=== PATIENT | male | born 1955 | race Caucasian/White ===

== ENCOUNTER 2017-02-06 12:42 | Outpatient (CLI) | payer BC ==
--- NOTE | 2017-02-06 14:31 | RAD ---
EXAM: LUMBAR SPINE 4 VIEWS: HISTORY: Low back pain with pain radiating down the right leg to the foot. The patient slipped 2 weeks ago and hyperextended his leg. COMPARISON: 07/30/16. FINDINGS: AP, lateral neutral, lateral extension, and lateral flexion views of the lumbar spine demonstrate 5 lumbar-type vertebral bodies. Stable fusion hardware along the posterior elements of L4, L5, and S1 . Stable anterior fusion changes at L4-L5. Stable disk prosthesis at L4-L5. One of the transpedic ular screws at L5 is fractured, similar to the prior exam. In the neutral position, 3.8 mm of retrolisthesis of L2 upon L3. Upon flexion, 3.3 mm of retrolisth esis of L2 upon L3. Upon extension, 4.1 mm of retrolisthesis of L2 upon L3. IMPRESSION: 1. Essentially unchanged and stable fusion changes of the lumbar spine. 2. Stable spondylolisthesis. POS: [facility]
== END 2017-02-06 12:43 | disposition home or self-care (01) ==
LOC: TBSIIMAG 12:42
PROVIDERS: ATTEND Neurological Surgery
DX: M54.16 Radiculopathy, lumbar region (principal); M43.26 Fusion of spine, lumbar region; M43.10 Spondylolisthesis, site unspecified
CPT/HCPCS: 72110

== ENCOUNTER 2019-11-22 06:57 | Day surgery (SDC) | payer BC ==
--- NOTE | 2019-11-22 08:55 | RAD ---
Exam: Lumbar myelogram COMPARISON: 06/21/2015, 07/30/2016 Exposure: 1 minute, 1529.8 mcg/sq m FINDINGS: [employer] lumbar spine radiograph demonstrates stable fusion changes with bilateral transpedicul ar screws at L4, L5 and S1. The right S1 screw is fractured. There is an anterior fusion at L4-L5. L4-L5 disc prosthesis is identified. Vacuum disc phenomenon at L2-L3. Moderate degenerative change at L3-L4. Successful lumbar puncture. A total of 9 cc of Isovue-M 200 contrast was administered intrathecally. There is evidence of a small amount of epidural contrast. TECHNIQUE: Consent obtained to perform a lumbar puncture. Patient's back was evaluated. The L2-L3 lev el was deemed appropriate. Sterile fashion. 1% lidocaine, buffered with sodium or, was used for local anesthesia. Under fluoroscopic guidance, 22-gauge spinal needle was advanced into the CSF space . Total of 9 cc of Isovue-M 200 contrast was administered intrathecally. Patient tolerated the procedure well. No immediate or postprocedure complications. IMPRESSION: Successful lumbar puncture for lumbar myelogram.
[2019-11-22 09:37] VITALS: BP 101/70; TEMP 97.6
--- NOTE | 2019-11-22 09:39 | CT ---
Exam: POST MYELOGRAM LUMBAR SPINE CT: COMPARISON: 07/30/2016, 06/21/2015. FINDINGS: Five lumbar type vertebra. Bilateral posterior transpedicular screws at L4, L5 and S1. The right S1 t ranspedicular screw is broken. Disc prosthesis at L4-L5. Associated anterior fusion at L4-L5. Laminectomy defect at L4-L5 and L5-S1. Progression of vacuum disc phenomenon at L2-L3. Endplate sclerosis and osteophyte formation has forme d. Lumbar spine vertebral body heights are maintained. No fracture. Spondylolisthesis: L1-L2: 2.6 mm of retrolisthesis. L3-L4: 2.6 mm of retrolisthesis. Appropriate attenuation of the visualized paraspinal muscles and solid organs. Diverticulosis, without evidence of diverticulitis. Mild enlarged prostate gland with mass effect upon the urinary bladder. Presacral fat is preserved. Sacral ala are intact. Visualized bony pelvis is also intact. Sagittal and axial images demonstrate mixed injection. T10-T11, T11-T12 and T12-L1: No high-grade central canal stenosis. Mild narrowing due to epidural co ntrast. L1-L2: No significant central canal stenosis. Neural foramina are patent. L2-L3: Vacuum disc phenomenon. Broad-based disc bulge, ligamentum flavum thickening and facet hypertr ophy. Moderate central canal stenosis. Severe bilateral neural foraminal narrowing. L3-L4: Broad-based disc bulge, ligamentum flavum thickening and facet hypertrophy. Moderate central c anal stenosis. Moderate to severe bilateral neural foraminal narrowing. L4-L5: Posterior laminectomy defect. Disc prosthesis. No evidence of high-grade central canal stenosi s. Moderate right and mild left neural foraminal narrowing. L5-S1: Fusion of the disc space. Posterior laminectomy defect. No significant central canal stenosis. Mild to moderate right and moderate left neural foraminal narrowing. IMPRESSION: 1. Stable fusion and postoperative changes. 2. Moderate central canal stenosis at L2-L3 and L3-L4. 3. Severe bilateral neural foraminal narrowing at L2-L3. 4. Progression of vacuum disc phenomenon at L2-L3 with endplate sclerosis and osteophyte formation. Transcribed Date/Time: 11/22/2019 10:01 AM
--- NOTE | 2019-11-22 09:56 | RAD ---
4 views of the cervical spine:: 11/22/2019 COMPARISON: None HISTORY: Cervical radiculopathy FINDINGS: There is anterolisthesis on neutral imaging at C4-5 measuring 4 mm. There is disc space megan rowing with degenerative endplate change and anterior osteophyte formation at C5-6 and C6-7. The flexion imaging demonstrates anterolisthesis at C3-4 measuring 3 mm and at C4-5 measuring 4 mm. O n the extension imaging there is no anterolisthesis at C3-4 and the anterolisthesis at C4-5 measures approximately 2-3 mm. No prevertebral soft tissue swelling is noted. Frontal imaging demonstrates multilevel mid cervical spine facet and uncovertebral osteophyte formati on, right greater than left. IMPRESSION: Multilevel degenerative change within the cervical spine as described above. Mild multile jordan anterolisthesis noted, most prominent upon flexion.
--- NOTE | 2019-11-22 10:04 | RAD ---
Lumbar spine 4 views: 11/22/2019 COMPARISON: 02/06/2017 HISTORY: Radiculopathy FINDINGS: Anterior fusion hardware is present at the L4-5 level and posterior fusion hardware is pres ent at L4-5/L5-S1 level. Stable fracture of one of the S1 pedicle screws again noted. The configuration of the postoperative hardware does not appear significantly changed when compared t o the 2017 exam. The patient underwent recent myelogram and there is contrast overlying the central canal at the L4 an d L5 levels. On the neutral lateral imaging there is retrolisthesis at the L2-3 level measuring 5 mm. This measure s 3 mm on flexion and 6 mm on extension. There is prominent degenerative endplate change with disc space narrowing, vacuum disc formation, as well as anterior and posterior osteophyte at the L2-3 leve l. Disc space narrowing with degenerative endplate change and posterior osteophyte formation noted at L3-4. The degree of degenerative changes better assessed on the CT myelogram of the lumbar spine also perfo rmed 11/22/2019. IMPRESSION: Postoperative and degenerative changes of the lumbar spine as detailed above.
[2019-11-22] MEDS ORDERED: Iopamidol-M 200 41% 20 ML VIAL ONE (10:07)
== END 2019-11-22 10:05 | disposition home or self-care (01) ==
LOC: RAD 06:57
PROVIDERS: ATTEND Neurological Surgery
PROC: B02B1ZZ Computerized Tomography (CT Scan) of Spinal Cord using Low Osmolar Contrast (ICD-10-PCS; principal; 2019-11-22)
DX: M47.27 Other spondylosis with radiculopathy, lumbosacral region (principal); M48.061 Spinal stenosis, lumbar region without neurogenic claudication; M54.12 Radiculopathy, cervical region; G95.89 Other specified diseases of spinal cord; I10 Essential (primary) hypertension; E11.9 Type 2 diabetes mellitus without complications; J45.909 Unspecified asthma, uncomplicated; Z79.899 Other long term (current) drug therapy
CPT/HCPCS: 62304; 72050; 72110; 72132; Q9966

== ENCOUNTER 2019-11-25 08:42 | Outpatient (CLI) | payer BC ==
--- NOTE | 2019-11-25 10:13 | MRI ---
MRI cervical spine noncontrast: 11/25/2019 HISTORY: 64-year-old male with cervical radiculopathy COMPARISON: None FINDINGS: Vertebral body heights are maintained. No major bone marrow signal abnormality. Cervical spinal cord is normal in size and signal. C1-2: No central stenosis. C2-3: Disc space maintained. Small to moderate-sized right uncinate process osteophytes cause moderat e right neural foraminal stenosis. Small left uncinate process osteophytes cause mild left neural foraminal stenosis. No central stenosis. Moderate right facet DJD. Mild left facet DJD. C3-4: Disc space maintained. Severe bilateral facet DJD, right greater than left, cause mild grade 1 anterolisthesis of C3 on C4. No central stenosis. Small bilateral uncinate process osteophytes. Severe right neural foraminal stenosis. Moderate to severe left neural foraminal stenosis. C4-5: Mild disc space narrowing. Severe bilateral facet DJD, left greater than right, causing mild gr julian 1 anterolisthesis of C4 on C5. Broad-based central and bilateral paracentral-lateral disc protrusion encroaches on the ventral aspect of spinal canal. Ligamentum flavum thickening encroaches upon posterior lateral aspect of spinal canal. Overall result is moderate central spinal canal stenosis. Moderate size bilateral uncinate process osteophytes. Severe bilateral neural foraminal mabel nosis. C5-6: Thickened posterior longitudinal ligament is contiguous with the broad-based disc protrusions a t C4-5 and C5-6. Moderate disc space narrowing. Broad-based central and bilateral paracentral-lateral disc protrusion encroaches on the ventral aspect of spinal canal, causing moderat e central spinal canal stenosis. Large bilateral uncinate process osteophytes causing severe bilateral neural foraminal stenosis, right worse than left. Normal right facet joint. Mild-moderate l eft facet DJD. C6-7: Moderate disc space narrowing. Moderate disc space narrowing. Broad-based central and bilateral paracentral-lateral disc protrusion encroaches on the ventral aspect of spinal canal, causing moderate central spinal canal stenosis. Mild bilateral facet DJD. Large bilateral uncinate process os teophytes cause severe bilateral neural foraminal stenosis. C7-T1: Severe right and moderate to severe left facet DJD causes mild grade 1 anterolisthesis of C7 o n T1. Mild disc space narrowing. No high-grade central spinal canal stenosis. Moderate bilateral neural foraminal stenosis. IMPRESSION: 1.) Cervical spondylosis with: degenerative disc disease at C4-5, C5-C6, and C6-7; and multilevel hig h-grade facet osteoarthrosis, including severe. 2) multilevel severe neural foraminal stenosis bilaterally. 3) moderate central spinal canal stenosis at several levels.
== END 2019-11-25 08:43 | disposition home or self-care (01) ==
LOC: BICMRI 08:42 → EDSTATUS 09:30
PROVIDERS: ATTEND Neurological Surgery
DX: M50.121 Cervical disc disorder at C4-C5 level with radiculopathy (principal); M47.22 Other spondylosis with radiculopathy, cervical region; M48.02 Spinal stenosis, cervical region; M48.03 Spinal stenosis, cervicothoracic region
CPT/HCPCS: 72141

== ENCOUNTER 2020-02-10 07:30 | Outpatient (CLI) | payer BC, OTHER ==
[2020-02-10 14:21] LABS: Hemoglobin 13.8 g/dL (14.0-18.0); Mean Corpuscular HGB CONC 33.5 g/dL (32.0-36.0); Mean Corpuscular Hemoglobin 30.3 pg (27.0-31.0); Mean Corpuscular Volume 90.5 fL (78.0-98.0); Mean Platelet Volume 8.1 fL (7.4-10.4); Platelet Count 194 thou/uL (130-400); RBC Distribution Width 11.9 % (11.5-14.5); Red Blood Cell (RBC) Count 4.56 mill/uL (4.70-6.10); White Blood Cell (WBC) Count 7.3 thou/uL (4.8-10.8)
[2020-02-10 14:37] LABS: INR-International Normal Ratio 0.9; PTT 28.7 sec (22.9-36.1); Prothrombin Time 12.7 sec (12.0-14.7)
[2020-02-11 11:12] LABS: SARS-CoV-2 MS2 Positive; SARS-CoV-2 N Gene Negative; SARS-CoV-2 S Gene Negative; SARS-CoV-2 by NAA Not Detected (NotDetected); SARS-CoV-2 orf1ab Negative
== END 2020-02-10 07:31 | disposition home or self-care (01) ==
LOC: LABBT 07:30
PROVIDERS: ATTEND Neurological Surgery
DX: Z01.812 Encounter for preprocedural laboratory examination (principal); Z20.828 Contact with and (suspected) exposure to other viral communicable diseases; M50.10 Cervical disc disorder with radiculopathy, unspecified cervical region; M48.02 Spinal stenosis, cervical region
CPT/HCPCS: 85027; 85610; 85730; 87635; U0003

== ENCOUNTER 2020-02-14 05:47 | Day surgery (SDC) | payer BC ==
[2020-02-10 10:37] VITALS: BMI 25.5
[2020-02-14] MEDS ORDERED: Thrombin 5000 UNITS/5 ML VIAL ONE ×2 (06:11→09:56)
[2020-02-14] MEDS ORDERED: Fentanyl 250 MCG/5 ML VIAL ONE (06:37)
[2020-02-14 06:43] LABS: Anion Gap 12 mmol/L (10-20); BUN (Urea Nitrogen) 23 mg/dL (8.4-25.7); Calc. Creatinine Clearance 67 mL/min (70-130); Calcium 8.8 mg/dL (7.8-10.44); Carbon Dioxide 27 mmol/L (23-31); Chloride 104 mmol/L (98-107); Estimated GFR-MDRD 61; Glucose 137 mg/dL (80-115); Potassium 4.1 mmol/L (3.5-5.1); Sodium 139 mmol/L (136-145)
[2020-02-14] MEDS ORDERED: EPHEDRINE 25 MG/5 ML SYRINGE ONE (10:28)
[2020-02-14] MEDS ORDERED: Ondansetron PF 4 MG/2 ML Vial ONE (10:28)
[2020-02-14] MEDS ORDERED: Albuterol Sulfate HFA (OR ONLY) ONE (10:28)
[2020-02-14] MEDS ORDERED: PHENYLEPHRINE-NS 100 MCG/ML 10 ML SYRINGE ONE (10:28)
[2020-02-14] MEDS ORDERED: Glycopyrrolate 0.2 MG/ML 5 ML SYRINGE ONE (10:28)
[2020-02-14] MEDS ORDERED: Vecuronium 10 MG VIAL ONE (10:28)
[2020-02-14] MEDS ORDERED: Rocuronium Bromide 10 MG/ML (10ML VIAL) ONE (10:28)
[2020-02-14] MEDS ORDERED: Lidocaine 1% PF 5 ML VIAL ONE (10:28)
[2020-02-14] MEDS ORDERED: Dexamethasone 20 MG/5 ML VIAL ONE (10:28)
[2020-02-14] MEDS ORDERED: Metoclopramide HCl 10 MG/2 ML VIAL ONE (10:28)
[2020-02-14] MEDS ORDERED: PROPOFOL 200 MG/20 ML VIAL ONE (10:28)
[2020-02-14] MEDS ORDERED: HYDROmorphone 2 MG/ML VIAL SLOW IVP PRN (12:55)
[2020-02-14] MEDS ORDERED: PACU-Morphine 4MG/ML VIAL SLOW IVP PRN (12:55)
[2020-02-14] MEDS ORDERED: Ondansetron HCl/PF 4 MG/2 ML Vial IVP PRN (12:55)
[2020-02-14] MEDS ORDERED: Promethazine HCl 25 MG/ML VIAL IM PRN ×2 (12:55→13:11)
[2020-02-14] MEDS ORDERED: Promethazine HCl 25 MG/ML VIAL SLOW IVP PRN (12:55)
[2020-02-14] MEDS ORDERED: Morphine Sulfate 2 MG/ML SYRINGE SLOW IVP PRN (12:55)
[2020-02-14] MEDS ORDERED: Mag-Al 1200 mg/1200 mg/30 ML UDCUP PO PRN (13:11)
[2020-02-14] MEDS ORDERED: Morphine 2 MG/ML VIAL SLOW IVP PRN (13:11)
[2020-02-14] MEDS ORDERED: Promethazine 25 MG TAB PO PRN (13:11)
[2020-02-14] MEDS ORDERED: Milk Of Magnesia 30 ML UDCUP PO PRN (13:11)
[2020-02-14] MEDS ORDERED: traMADol HCl 50 MG TAB PO PRN (13:11)
[2020-02-14] MEDS ORDERED: Scopolamine 1.5 mg/72 hour Patch TD PRN (13:11)
[2020-02-14] MEDS ORDERED: Acetaminophen 325 MG TAB PO PRN (13:11)
[2020-02-14] MEDS ORDERED: diphenhydrAMINE 50 MG/ML VIAL IVP PRN (13:11)
[2020-02-14] MEDS ORDERED: HYDROmorphone 2 MG/ML VIAL ONE (13:13)
[2020-02-14] MEDS ORDERED: Fentanyl 100 MCG/2 ML VIAL ONE (14:02)
[2020-02-14] MEDS: Sodium Chloride 0.9% 1,000 ML IV SCH (15:45)
[2020-02-14] MEDS: CEFAZOLIN 2 GM in Premix Bag 1 BAG IVPB SCH ×2 (15:45→21:41)
[2020-02-14] MEDS: tiZANidine HCl 4 MG TAB PO PRN ×2 (15:56→21:56)
--- NOTE | 2020-02-14 18:03 | EKG ---
Test Reason : PREOP Blood Pressure : / mmHG Vent. Rate : 048 BPM Atrial Rate : 048 BPM P-R Int : 212 ms QRS Dur : 088 ms QT Int : 436 ms P-R-T Axes : 025 -01 026 degrees QTc Int : 389 ms Marked sinus bradycardia with 1st degree A-V block Abnormal ECG No previous ECGs available Confirmed by DR. Logan PRABHAKAR (3) on 02/14/2020 6:02:56 PM Referred By: TARUN Confirmed By:DR. Logan PRABHAKAR
--- NOTE | 2020-02-14 19:15 | OP ---
DATE OF PROCEDURE: 02/14/2020 [facility] PRACT[facility] NURSE PSYCHOTHERAPIST: Ranjeet Perez PA-C. PREOPERATIVE INDICATIONS: Treat pain and prevent neurological deterioration. PREOPERATIVE DIAGNOSES: Multilevel cervical intervertebral disk disease with foraminal stenosis and canal stenosis, instability. POSTOPERATIVE DIAGNOSES: Multilevel cervical intervertebral disk disease with foraminal stenosis and canal stenosis, instability. PROCEDURES PERFORMED: 1. Anterior cervical diskectomy, C3-C4, C4-C5, C5-C6, C6-C7. 2. Intervertebral arthrodesis, C3-C4, C4-C5, C5-C6, C6-C7. 3. Placement of intervertebral biomechanical device,C3-C4, C4-C5, C5-C6, C6-C7 (separate from plate). 4. Anterior cervical plating, C3-C7 (separate from interbody devices). 5. Local morselized autograft, morselized allograft. 6. Operative microscope. PREOPERATIVE MEDICATIONS: Ancef 2 g IV. DRAIN NUMBER: Zero. DRAIN TYPE: None. DESCRIPTION OF PROCEDURE: The patient was brought to the operating room. General endotracheal anesthesia was induced. The patient was carefully positioned supine with his head supported by a donut-shaped headrest. A lateral fluoro radiograph was used to plan our incision. The right side of the neck was sterilely prepped and draped. We opened our incision with a 10 blade knife and we controlled bleeding with bipolar cautery. We dissected sharply to the platysma and we cut this muscle in line with our incision. We continued our dissection medial to the sternocleidomastoid and lateral to the trachea and esophagus. We arrived at the prevertebral space. We placed a marker at C3-C4 and took a lateral fluoro radiograph to confirm the levels upon which we were operating. We elevated the longus colli muscles off the anterior surface of C3, C4, C5, C6, and C7. A self-retaining retractor was placed under the longus colli muscles at C4. Distraction pins were placed at C3 and C5 and we distracted across the two intervening interspaces. We incised the interspaces with a 15 blade knife and removed disk contents using curettes and rongeurs. The operating microscope was brought into the field. Under microscopic magnification and using microsurgical techniques, we removed the remainder of the intervertebral disk. We accessed the ventral epidural space with a micro curette. Using 1 and 2 mm Kerrison rongeurs, we removed posterior longitudinal ligament and posterior osteophytes from one neural foramen all the way to the other foramen ensuring adequate decompression of all neural elements at C3-C4 and again at C4-C5. We turned our attention to arthrodesis. With curettes, we prepared the endplates. With a bone rasp, we measured the height of each interspace. Both of these interspaces measured 8 mm in height. Two separate PEEK grafts were brought into the field. These measured 8 mm in height to match the interspaces. The osteophytes removed during our decompression were cleaned of soft tissue attachments, morselized and added to demineralized bone matrix to form our fusion substrate. The substrate was packed into the center of the PEEK devices and those were advanced into the respective interspaces under radiographic guidance to the appropriate depth. We then removed our distraction pins. We turned our attention to C5-C6 and C6-C7. Our distraction pins were placed at C7 and C5 and we distracted across both of these interspaces. We incised the interspaces with a 15 blade knife and removed disk contents using curettes and rongeurs. Continuing under the operating microscope and using microsurgical techniques, we removed the remainder of the intervertebral disk. We accessed the ventral epidural space with a micro curette and used 1 and 2 mm Kerrison rongeurs to remove the posterior longitudinal ligament and posterior osteophytes across the entire interspace from one neural foramen to the other at C5-C6 and again at C6-C7. We prepared the endplates for grafting using curettes and measured the height of each interspace to 6 mm. Two separate 6 mm PEEK devices were brought into the field. These were loaded with demineralized bone matrix and morselized autograft and advanced into their interspaces under radiographic guidance to the appropriate depth. We then removed all our distraction pins and the operative microscope. A 72 mm anterior cervical plate was brought into the field. We drilled car pilot holes through the plate into the vertebral segments at C3, C4, C5, C6, and C7. We affixed the plate using 16 mm screws. Fixed angle screws were used at C7 and variable angle screws at all the other vertebral segments. The plate was separate from the interbody devices. We engaged the locking mechanism over each of the 10 screws. AP and lateral fluoro radiographs confirmed adequate positioning of our instrumentation. We irrigated with bacitracin irrigation. We closed the wound in anatomical layers. We applied a sterile dressing. This was a clean case, no contamination. Job ID: [id number]
[2020-02-14] MEDS ORDERED: Losartan 25 MG TAB PO SCH (21:00)
[2020-02-14] MEDS ORDERED: Tamsulosin HCl 0.4 MG CAP PO SCH (21:00)
[2020-02-14] MEDS ORDERED: Hydrochlorothiazide 25 MG TAB PO SCH (21:00)
[2020-02-14] MEDS: Gabapentin 300 MG CAP PO SCH (21:39)
[2020-02-14] MEDS: Acetaminophen/Codeine 30-300mg Tablet PO PRN (21:56)
[2020-02-15] MEDS: Sodium Chloride 0.9% 1,000 ML IV SCH (02:04)
[2020-02-15] MEDS: Acetaminophen/Codeine 30-300mg Tablet PO PRN ×2 (03:13→06:13)
[2020-02-15] MEDS: tiZANidine HCl 4 MG TAB PO PRN (06:13)
--- NOTE | 2020-02-15 07:30 | PRG ---
DATE OF SERVICE: 02/15/2020 Mr. Suresh is one day out from 4 level ACDF. He is actually doing quite well. Voice is normal. He has no pain or tingling in the arms. He has tightness at the base of the neck and minimal pain He is pleased with the results of his operation. His vitals have been stable overnight and his neurological examination is as well. Mr. Suresh is ready for discharge today. The bandage can stay until tomorrow. Thereafter it can be removed and he can shower. He does not need to sleep, eat or shower in the collar, but the rest of the time it should be on. Job ID: [id number] [facility]
[2020-02-15 07:59] VITALS: BP 127/79; TEMP 98.2
[2020-02-15] MEDS: Gabapentin 300 MG CAP PO SCH (09:48)
== END 2020-02-15 11:30 | disposition home or self-care (01) ==
LOC: SDC 05:47 → SURG B 13:11 → SDC 02-15 11:30
PROVIDERS: ATTEND Neurological Surgery
PROC: 0RT30ZZ Resection of Cervical Vertebral Disc, Open Approach (ICD-10-PCS; principal; 2020-02-15)
PROC: 0RG20A0 Fusion of 2 or more Cervical Vertebral Joints with Interbody Fusion Device, Anterior Approach, Anterior Column, Open Approach (ICD-10-PCS; principal; 2020-02-15)
DX: M50.01 Cervical disc disorder with myelopathy, high cervical region (principal); M48.02 Spinal stenosis, cervical region; I10 Essential (primary) hypertension; J45.909 Unspecified asthma, uncomplicated; E11.9 Type 2 diabetes mellitus without complications; M19.90 Unspecified osteoarthritis, unspecified site; Z79.899 Other long term (current) drug therapy
CPT/HCPCS: 36415; 76000; 80048; 90471; 90732; 93005; 93010; C1713; C1776; G0009; J0690; J1100; J1170; J2405; J2704; J2765; J3010; J3490

== ENCOUNTER 2020-02-16 08:48 | Observation (INO) | payer BC ==
[2020-02-16] MEDS ORDERED: Ketorolac Tromethamine 30 MG/ML VIAL ONE (09:50)
[2020-02-16] MEDS ORDERED: Dexamethasone 10 MG/ML VIAL ONE (09:50)
[2020-02-16 10:36] LABS: #Eosinphils 0.1 thou/uL (0.0-0.7); #Lymphocytes 1.1 thou/uL (1.20-3.40); #Monocytes 1.1 thou/uL (0.11-0.59); #Neutrophils 6.9 thou/uL (1.40-6.50); %Basophils 0.4 % (0.0-1.0); %Eosinophils 0.7 % (0.0-10.0); %Lymphocytes 11.8 % (21.0-51.0); %Neutrophils 75.2 % (42.0-75.0); Hemoglobin 11.5 g/dL (14.0-18.0); Mean Corpuscular HGB CONC 34.2 g/dL (32.0-36.0); Mean Corpuscular Hemoglobin 30.8 pg (27.0-31.0); Platelet Count 132 thou/uL (130-400); RBC Distribution Width 11.8 % (11.5-14.5); Red Blood Cell (RBC) Count 3.76 mill/uL (4.70-6.10); White Blood Cell (WBC) Count 9.2 thou/uL (4.8-10.8)
[2020-02-16 10:58] LABS: ALT (SGPT) 7 U/L (8-55); AST (SGOT) 23 U/L (5-34); Alkaline Phosphatase 84 U/L (40-110); Anion Gap 11 mmol/L (10-20); BUN (Urea Nitrogen) 16 mg/dL (8.4-25.7); Bilirubin, Total 1.7 mg/dL (0.2-1.2); Calc. Creatinine Clearance 0 mL/min (70-130); Calcium 8.5 mg/dL (7.8-10.44); Carbon Dioxide 29 mmol/L (23-31); Chloride 99 mmol/L (98-107); Estimated GFR-MDRD 67; Globulin 2.6 g/dL (2.4-3.5); Glucose 156 mg/dL (80-115); Protein, Total 6.6 g/dL (5.8-8.1); Sodium 135 mmol/L (136-145)
[2020-02-16] MEDS ORDERED: Dextrose 5% in Water 1,000 ML IV PRN (14:00)
[2020-02-16] MEDS ORDERED: HumaLOG 300 UNITS/3 ML VIAL SC PRN (14:00)
[2020-02-16] MEDS ORDERED: Dextrose 50% Abboject 50 ML SYRINGE SLOW IVP PRN (14:00)
[2020-02-16] MEDS ORDERED: Morphine 4 MG/ML VIAL SLOW IVP PRN (14:02)
--- NOTE | 2020-02-16 15:03 | RAD ---
Esophagram HISTORY: Dysphagia. Recent cervical spine surgery. FINDINGS: Single column exam performed. There is noticeable prevertebral soft tissue prominence at th e mid to lower cervical spine, consistent with recent surgery. While there is mild indentation upon the posterior aspect of the upper esophagus, no evidence of obstruction. No leak from the esophagus e vident. After several swallows, a small amount of contrast is evident along the posterior aspect of the epiglottis and upper trachea. Patient did experience a mild episode of coughing during the proced ure. IMPRESSION : No evidence of upper esophageal obstruction or leak. Small volume aspiration. Findings were called to emergency credit department manager at the time of the exam. Code CR.
--- NOTE | 2020-02-16 19:55 | CON ---
DATE OF CONSULTATION: REASON FOR CONSULTATION: Medical management. HISTORY OF PRESENT ILLNESS: The patient is a 64-year-old male, status post anterior post cervical fusion on Friday, who was discharged from the hospital yesterday. The patient stated that after discharge, he was feeling well and was able to eat and drink, but later that night, he started experiencing worsening neck pain and was not able to eat or drink anything. The patient is also unable to lay flat. He denies chest pain, fever, shortness of breath, cough, or difficulty breathing. The patient stated that he is experiencing a fullness sensation in his neck and is unable to get anything down including liquids. REVIEW OF SYSTEMS: Negative except as noted in HPI. PAST MEDICAL HISTORY: Hypertension; diabetes mellitus, type 2; GERD; and BPH. PAST SURGICAL HISTORY: Cervical fusion, gallbladder surgery, knee and shoulder surgeries. SOCIAL HISTORY: The patient denies alcohol use, illicit drug use, or smoking. PHYSICAL EXAMINATION: GENERAL: The patient is alert and oriented x3. HEENT: Head is normocephalic and atraumatic. Extraocular muscles are intact. He is unable to move his neck due to pain. CARDIOVASCULAR: Revealed normal S1 and S2 with regular rate and rhythm. RESPIRATORY: Reveals no respiratory distress or tachypnea and normal chest expansion. NEUROLOGICAL: Showing no focal deficits. LABORATORY DATA: CT scan of the neck was attempted, but the patient was unable to lay flat for the procedure. ASSESSMENT: 1. Dysphagia. 2. Neck pain, status post recent cervical fusion. 3. Hypertension. 4. Hyperlipidemia. 5. Gastroesophageal reflux disease. 6. Benign prostatic hyperplasia. PLAN: The patient will be admitted to the medical floor. We will continue his home antihypertensive medications. Start insulin sliding scale for diabetes. Morphine for pain control. Barium swallow study to assess for any esophageal narrowing. Further recommendations per primary neurosurgical team. Job ID: [id number] [facility]
[2020-02-16] MEDS ORDERED: Gabapentin 300 MG CAP PO SCH (21:00)
[2020-02-16] MEDS ORDERED: Tamsulosin HCl 0.4 MG CAP PO SCH (21:00)
[2020-02-16] MEDS ORDERED: Losartan 25 MG TAB PO SCH (21:00)
== END 2020-02-16 15:37 | disposition home or self-care (01) ==
LOC: ERS 08:48 → ERHOLD 12:41
PROVIDERS: ADMIT Internal Medicine; ATTEND Internal Medicine
DX: R13.10 Dysphagia, unspecified (principal); M54.2 Cervicalgia; I10 Essential (primary) hypertension; E78.5 Hyperlipidemia, unspecified; K21.9 Gastro-esophageal reflux disease without esophagitis; N40.0 Benign prostatic hyperplasia without lower urinary tract symptoms; E11.9 Type 2 diabetes mellitus without complications; Z79.899 Other long term (current) drug therapy; Z98.1 Arthrodesis status
CPT/HCPCS: 36415; 74220; 80053; 85025; 96360; 96361; 96372; J1100; J1885

== ENCOUNTER 2020-04-13 11:02 | Outpatient (CLI) | payer BC ==
--- NOTE | 2020-04-13 11:33 | RAD ---
Exam: Cervical spine 3 views COMPARISON: 07/30/2016, 10/26/2019 HISTORY: Status post surgery. Follow-up exam FINDINGS: Anterior fusion plate from C3 through C7. No perihardware lucency. Disc prosthesis at C3-C4 , C4-C5, C5-C6 and C6-C7. No prevertebral soft tissue swelling. Predental space is normal. Vertebral body heights are maintained. No fractures or malalignment On the AP projection, stable multilevel facet arthropathy. Previous noted anterolisthesis of C5 upon C6 is not evident. IMPRESSION: Cervical fusion from C3 through C7 without complication or loosening.
== END 2020-04-13 11:03 | disposition home or self-care (01) ==
LOC: TBSIIMAG 11:02
PROVIDERS: ATTEND Neurological Surgery
DX: M50.00 Cervical disc disorder with myelopathy, unspecified cervical region (principal); Z98.1 Arthrodesis status
CPT/HCPCS: 72040